=== PATIENT | male | born 1990 | race Caucasian/White ===

== ENCOUNTER 2020-12-19 20:31 | Observation (INO) | payer OTHER ==
[~2020-12-19] VITALS: Ht 190.5 cm; Wt 121.6 kg
[2020-12-20 04:16] LABS: HEMOGLOBIN 16.3 gm/dl (14.0-17.5); RED BLOOD COUNT 5.31 M/UL (4.20-5.50); WHITE BLOOD COUNT 10.7 K/UL (4.5-11.0)
[2020-12-20 05:00] LABS: BUN/CREATININE RATIO 10 (0-10)
[2020-12-22 04:06] LABS: HEMOGLOBIN 15.3 gm/dl (14.0-17.5); RED BLOOD COUNT 4.98 M/UL (4.20-5.50); WHITE BLOOD COUNT 9.2 K/UL (4.5-11.0)
[2020-12-22 04:28] LABS: BUN/CREATININE RATIO 14 (0-10)
== END 2020-12-22 17:43 | disposition home or self-care (01) ==
LOC: MED SURG 4 12-20 01:37
PROVIDERS: Internal Medicine; ADMIT Internal Medicine
DX: T63.091A Toxic effect of venom of other snake, accidental (unintentional), initial encounter (principal); M79.89 Other specified soft tissue disorders; R19.7 Diarrhea, unspecified; F17.290 Nicotine dependence, other tobacco product, uncomplicated; E66.9 Obesity, unspecified; Z68.33 Body mass index [BMI] 33.0-33.9, adult; W59.11XA Bitten by nonvenomous snake, initial encounter
CPT/HCPCS: 36415; 80053; 82550; 82553; 83605; 83735; 84100; 84484; 85025; 85027; 86140; 96372; 96374; G0378; G0379; J1650; J2405